=== PATIENT | female | born 1930 | race Caucasian/White ===

== ENCOUNTER 2018-11-14 19:05 | Observation (INO) ==
--- NOTE | 2018-11-14 20:05 | ED ---
HPI General Chief Complaint: Fall Stated Complaint: Fall injury Time Seen by Provider: 11/14/18 19:19 Source: patient Mode of arrival: ambulatory Limitations: no limitations History of Present Illness HPI Narrative: 80-year-old female presents to the emergency department for evaluation after a fall that occurred earlier today. Patient states she was getting out of the car when she slipped and fell landing on the left side of her face. She actually does not recall how she fell but believes she may have slipped as it is raining outside. Her states that patient had a pretty intense physical therapy session and believes it may been a result of weakness and fatigue. She denies loss conscious, blurred vision, neck pain, numbness or tingling of the extremities. She is complaining of left facial and left shoulder pain after the incident. She notes that she has a history of a bulge in the clavicle and this is not new for her. She says she takes Coumadin for her heart history and says she checked INR earlier this month which was 2-3. She denies fever, chills, chest pain, shortness of breath she denies dizziness. MD complaint: Reports fall Onset (ago): hour(s) Fall from: chair Fall witnessed: yes, by family Place fall occurred: home Loss of consciousness: none Prolonged down time: no Symptoms prior to fall: Reports none Context: Reports tripped/slipped Location of injury: Reports face Location of injury - extremities: Left: shoulder Severity: mild Quality: Reports aching Associated symptoms (after fall): Reports denies Related Data Home Medications Medication Instructions Recorded Confirmed atorvastatin 40 mg PO DAILY 09/12/18 11/14/18 diltiazem HCl 120 mg PO DAILY 09/12/18 11/14/18 lisinopril 2.5 mg PO DAILY 09/12/18 11/14/18 metformin 500 mg PO DAILY 09/12/18 11/14/18 warfarin 5 mg PO DAILY 09/12/18 11/14/18 calcium carbonate [Calcium 600] 600 mg PO DAILY 09/13/18 11/14/18 lutein 20 mg PO DAILY 09/13/18 11/14/18 memantine 10 mg PO BID 11/14/18 11/14/18 Allergies Allergy/AdvReac Type Severity Reaction Status Date / Time procaine Allergy Severe FAINTED Verified 09/20/18 06:31 oxycodone AdvReac Severe Nausea/Vomi Verified 09/20/18 06:31 ting simvastatin AdvReac Intermediate FLUSHED Verified 09/20/18 06:31 Review of Systems ROS: all other systems reviewed are negative PMFSH Social History Social History Substance History: No History of Abuse Second Hand Smoke Exposure: No Smoking Status: Former smoker Tobacco Type: Cigarettes How Often Do You Have a Drink Containing Alcohol: Monthly or less Recent Travel in [facility] within the Last 8 Weeks: No Recent Out of Country Travel within the Last 8 Weeks: No Immunization History Tetanus Immunization: Unsure Exam Narrative Exam Narrative: GENERAL: WD, WN in NAD SKIN: Focused skin assessment warm/dry. HEAD: Normocephalic. Left lateral orbit and maxilla-ecchymosis with tenderness palpation without crepitus EYES: Pupils equal and round. No scleral icterus. No injection or drainage. ENT: No nasal bleeding or discharge. Mucous membranes pink and moist. No tonsillar hypertrophy or exudate. NECK: Trachea midline. No JVD. No meningismus. No midline tenderness. CARDIOVASCULAR: Regular rate and rhythm. No murmur appreciated. RESPIRATORY: No accessory muscle use. Clear to auscultation. Breath sounds equal bilaterally. GASTROINTESTINAL: Abdomen soft, non-tender, nondistended. No CVAT. MUSCULOSKELETAL: No obvious deformities. No clubbing. No cyanosis. No edema. No tenderness to palpation of the calves. Sensation intact to bilateral lower extremities. Left shoulder-diffusely tender to palpation, focused in the clavicle. There is a bulge in the medial aspect of the clavicle patient states is chronic. No obvious deformities. NEUROLOGICAL: Awake and alert. No obvious cranial nerve deficits. Motor grossly within normal limits. Normal speech. PSYCHIATRIC: Appropriate mood and affect; insight and judgment normal. Course Initial Documented Vital Signs Temperature 97.9 F 11/14/18 19:08 Pulse Rate 84 11/14/18 19:08 Respiratory Rate 18 11/14/18 19:08 Blood Pressure 225/94 H 11/14/18 19:08 Pulse Oximetry 98 11/14/18 19:08 Last Documented Vital Signs Temperature 97.9 F 11/15/18 11:03 Pulse Rate 93 H 11/15/18 12:00 Respiratory Rate 20 11/15/18 11:03 Blood Pressure 170/75 H 11/15/18 13:50 Pulse Oximetry 96 11/15/18 11:03 Medical Decision Making MIGUE Attestation MIGUE supervised visit: Yes Attestation: I, Dr. Carey, have reviewed the advance practice practitioner's documentation and am in agreement, met with the patient face to face, made the diagnosis, and the medical decision making was done by me. *My assessment and Findings: Syncope vs. Head trauma vs. fracture vs. contusion 88yo F with PMH of CAD s/p bypass, HTN, HLd, DM, paroxysmal afib on coumadin, tachybrady syndrome s/p pacemaker here for evaluation of fall after getting out of car today. Pt does not remember what happened and there was question about syncope. Labs reviewed, no leukocytosis. H/H normal. BMP unremarkable. INR therapeutic at 2.1. Xray left shoulder showed mild degenerative changes AC joints. No fracture. CT brain negative. CT facial showed no facial bone fracture. CT cervical spine showed degenerative changes without fracture. Previous fusion at C5-C6. Pt reevaluated at bedside and now said that she does not remember what happened. Said she remembers about to get out of the car and next thing she remembers is waking up on the floor. said she passed out. 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 Will admit for syncope work up. Discussed with Dr. Hyde and accepted to her service. [facility] Narrative Medical decision making narrative: 88-year-old female presents to the emergency department for evaluation of a fall that occurred earlier today. She denies loss conscious, headache, blurred vision. Denies neck or back pain. Denies numbness or tingling of extremities. Her main complaint is the contusion to her face and left shoulder. Patient does have a history of atrial fibrillation is currently on Coumadin. Order labs for evaluation as patient is unsure how she fell but I suspect that she slipped as it is raining quite heavily today. EKG shows sinus rhythm rate [address] elevation or depression. There are occasional PACs. Medical Screen Exam Complete: Yes Emergency Medical Condition: Yes Differential Diagnosis Differential Diagnosis: Facial trauma, orbital fracture, closed head injury, intracranial hemorrhage Lab Data Result diagrams: 11/15/18 06:48 11/15/18 06:48 Lab Results 11/14/18 11/14/18 11/14/18 Range/Units 19:42 19:42 19:42 WBC 7.3 (4.0-11.0) th/mm3 RBC 4.11 (4.00-5.30) mil/mm3 Hgb 12.4 (11.6-15.3) gm/dL Hct 36.0 (35.0-46.0) % MCV 87.5 (80.0-100.0) fL MCH 30.1 (27.0-34.0) pg MCHC 34.3 (32.0-36.0) % RDW 14.0 (11.6-17.2) % Plt Count 149 L (150-450) th/mm3 MPV 6.6 L (7.0-11.0) fL Neut % (Auto) 73.7 H (16.0-70.0) % Lymph % (Auto) 14.8 (9.0-44.0) % [place] % (Auto) 10.0 H (0.0-8.0) % Eos % (Auto) 1.1 (0.0-4.0) % Baso % (Auto) 0.4 (0.0-2.0) % Neut # (Auto) 5.4 (1.8-7.7) th/mm3 Lymph # (Auto) 1.1 (1.0-4.8) th/mm3 [place] # (Auto) 0.7 (0.0-0.9) th/mm3 Eos # (Auto) 0.1 (0.0-0.4) th/mm3 Baso # (Auto) 0.0 (0.0-0.2) th/mm3 WBC Differential . Differential Comment Auto diff final PT 21.2 H (9.8-11.6) sec INR 2.1 Ratio Sodium 138 (136-145) meq/L Potassium 3.9 (3.5-5.1) meq/L Chloride 104 (98-107) meq/L Carbon Dioxide 27.8 (21.0-32.0) meq/L Anion Gap 6 (5-15) meq/L BUN 12 (7-18) mg/dL Creatinine 0.87 (0.50-1.00) mg/dL Estimated GFR 61 L (>89) mL/min Random Glucose 117 H (74-106) mg/dL Calcium 9.4 (8.5-10.1) mg/dL Total Bilirubin (0.2-1.0) mg/dL AST (15-37) U/L ALT (10-53) U/L Alkaline Phosphatase (45-117) U/L Troponin I (0.02-0.05) ng/mL Total Protein (6.4-8.2) g/dL Albumin (3.4-5.0) g/dL Urine Color (Yellw/Straw) Urine Clarity (Clear) Urine pH (5.0-8.5) Ur Specific [place] (1.002-1.035) Urine Protein (Neg-Trace) mg/dL Urine Glucose (UA) (Negative) mg/dL Urine Ketones (Negative) mg/dL Urine Occult Blood (Negative) Urine Nitrate (Negative) Urine Bilirubin (Negative) Urine Urobilinogen (Less than 2) mg/dL Ur Leukocyte Esterase (Negative) Urine RBC (0-3) /hpf Urine WBC (0-5) /hpf Micro UA Comment Ur Microscopic Review Urine Culture Comments 11/14/18 11/15/18 11/15/18 Range/Units 22:05 00:17 06:48 WBC 6.7 (4.0-11.0) th/mm3 RBC 3.58 L (4.00-5.30) mil/mm3 Hgb 11.2 L (11.6-15.3) gm/dL Hct 32.0 L (35.0-46.0) % MCV 89.4 (80.0-100.0) fL MCH 31.2 (27.0-34.0) pg MCHC 34.9 (32.0-36.0) % RDW 14.3 (11.6-17.2) % Plt Count 124 L (150-450) th/mm3 MPV 6.4 L (7.0-11.0) fL Neut % (Auto) 72.1 H (16.0-70.0) % Lymph % (Auto) 14.4 (9.0-44.0) % [place] % (Auto) 12.3 H (0.0-8.0) % Eos % (Auto) 0.7 (0.0-4.0) % Baso % (Auto) 0.5 (0.0-2.0) % Neut # (Auto) 4.9 (1.8-7.7) th/mm3 Lymph # (Auto) 1.0 (1.0-4.8) th/mm3 [place] # (Auto) 0.8 (0.0-0.9) th/mm3 Eos # (Auto) 0.0 (0.0-0.4) th/mm3 Baso # (Auto) 0.0 (0.0-0.2) th/mm3 WBC Differential . Differential Comment Auto diff final PT (9.8-11.6) sec INR Ratio Sodium (136-145) meq/L Potassium (3.5-5.1) meq/L Chloride (98-107) meq/L Carbon Dioxide (21.0-32.0) meq/L Anion Gap (5-15) meq/L BUN (7-18) mg/dL Creatinine (0.50-1.00) mg/dL Estimated GFR (>89) mL/min Random Glucose (74-106) mg/dL Calcium (8.5-10.1) mg/dL Total Bilirubin (0.2-1.0) mg/dL AST (15-37) U/L ALT (10-53) U/L Alkaline Phosphatase (45-117) U/L Troponin I Less than 0.02 L (0.02-0.05) ng/mL Total Protein (6.4-8.2) g/dL Albumin (3.4-5.0) g/dL Urine Color Colorless (Yellw/Straw) Urine Clarity Clear (Clear) Urine pH 7.0 (5.0-8.5) Ur Specific [place] 1.004 (1.002-1.035) Urine Protein Negative (Neg-Trace) mg/dL Urine Glucose (UA) Negative (Negative) mg/dL Urine Ketones Negative (Negative) mg/dL Urine Occult Blood Negative (Negative) Urine Nitrate Negative (Negative) Urine Bilirubin Negative (Negative) Urine Urobilinogen Less than 2 (Less than 2) mg/dL Ur Leukocyte Esterase Negative (Negative) Urine RBC Less than 1 (0-3) /hpf Urine WBC Less than 1 (0-5) /hpf Micro UA Comment Culture not ind Ur Microscopic Review Not Reportable Urine Culture Comments Culture not ind 11/15/18 Range/Units 06:48 WBC (4.0-11.0) th/mm3 RBC (4.00-5.30) mil/mm3 Hgb (11.6-15.3) gm/dL Hct (35.0-46.0) % MCV (80.0-100.0) fL MCH (27.0-34.0) pg MCHC (32.0-36.0) % RDW (11.6-17.2) % Plt Count (150-450) th/mm3 MPV (7.0-11.0) fL Neut % (Auto) (16.0-70.0) % Lymph % (Auto) (9.0-44.0) % [place] % (Auto) (0.0-8.0) % Eos % (Auto) (0.0-4.0) % Baso % (Auto) (0.0-2.0) % Neut # (Auto) (1.8-7.7) th/mm3 Lymph # (Auto) (1.0-4.8) th/mm3 [place] # (Auto) (0.0-0.9) th/mm3 Eos # (Auto) (0.0-0.4) th/mm3 Baso # (Auto) (0.0-0.2) th/mm3 WBC Differential Differential Comment PT (9.8-11.6) sec INR Ratio Sodium 141 (136-145) meq/L Potassium 3.8 (3.5-5.1) meq/L Chloride 109 H (98-107) meq/L Carbon Dioxide 24.4 (21.0-32.0) meq/L Anion Gap 8 (5-15) meq/L BUN 9 (7-18) mg/dL Creatinine 0.68 (0.50-1.00) mg/dL Estimated GFR 82 L (>89) mL/min Random Glucose 103 (74-106) mg/dL Calcium 8.6 D (8.5-10.1) mg/dL Total Bilirubin 0.6 (0.2-1.0) mg/dL AST 20 (15-37) U/L ALT 21 (10-53) U/L Alkaline Phosphatase 86 (45-117) U/L Troponin I Less than 0.02 L (0.02-0.05) ng/mL Total Protein 6.2 L (6.4-8.2) g/dL Albumin 3.2 L (3.4-5.0) g/dL Urine Color (Yellw/Straw) Urine Clarity (Clear) Urine pH (5.0-8.5) Ur Specific [place] (1.002-1.035) Urine Protein (Neg-Trace) mg/dL Urine Glucose (UA) (Negative) mg/dL Urine Ketones (Negative) mg/dL Urine Occult Blood (Negative) Urine Nitrate (Negative) Urine Bilirubin (Negative) Urine Urobilinogen (Less than 2) mg/dL Ur Leukocyte Esterase (Negative) Urine RBC (0-3) /hpf Urine WBC (0-5) /hpf Micro UA Comment Ur Microscopic Review Urine Culture Comments Imaging Data Radiologist's impression: Cervical Spine CT 11/14/18 19:29 CONCLUSION: 1. Extensive degenerative changes without fracture. 2. Previous fusion at C5-C6 Face CT 11/14/18 19:29 CONCLUSION: 1. Negative for facial bone fracture. Complete opacification of the left maxillary sinus with chronic periosteal reaction suggesting long-term obstruction. Head CT 11/14/18 19:29 CONCLUSION: 1. Negative for acute process . Shoulder X-Ray 11/14/18 19:29 CONCLUSION: Mild degenerative changes AC joints no fracture Carotid Doppler Study 11/15/18 00:00 CONCLUSION: Negative examination for a hemodynamically significant carotid stenosis. Adam Garibay MD FACR ECG Data EKG Prior to Arrival: No Attestation: I personally reviewed and interpreted this ECG as follows: Interpretation: NSR 76bpm. LAD. TWI aVL. QTc 424ms. No significant ST elevation or depression. Discharge Plan Discharge Disposition Patient Disposition: ED Admit(ED Internal Use Only) Discharge Order Discharge Orders: ED Use Only Admit Order (Routine); Ordered 11/14/18 Ordered By: Jaimie Carey Discharge Details Diagnosis: Syncope Physicians Team ED Provider: Jaimie Carey ED Midlevel Provider: Courtney Guillen Primary Care Provider: Bobbi Mayo Attending Provider: Arleen Hurst Other Providers: Anthony Mendenhall Status ED Status: Left Department Discharge Information Discharge Date/Time: 11/15/18 00:54
--- NOTE | 2018-11-14 20:07 | XR ---
EXAM DATE: 11/14/2018 8:02 PM EST AGE/SEX: 88 years / Female INDICATIONS: Left shoulder pain after fall. CLINICAL DATA: This is the patient's initial encounter. Patient reports that signs and symptoms have been present for 1 day and indicates a pain score of 2/10. MEDICAL/SURGICAL HISTORY: None. None. COMPARISON: . FINDINGS: Bony structures are intact and in normal alignment. Joints are intact without dislocation or signifi cant arthropathy. Mild AC joint degenerative changes evident Osseous density is normal. Soft tissue s are unremarkable. No radiopaque foreign bodies seen. Pacemaker on the left, CONCLUSION: Mild degenerative changes AC joints no fracture Electronically signed by: Adam Garibay MD Board Certified Radiologist 11/14/2018 8:05 PM EST
[2018-11-14 20:13] LABS: Baso % (Auto) 0.4 % (0.0-2.0); Eos # (Auto) 0.1 th/mm3 (0.0-0.4); Eos % (Auto) 1.1 % (0.0-4.0); Hemoglobin 12.4 gm/dL (11.6-15.3); Lymph # (Auto) 1.1 th/mm3 (1.0-4.8); Lymph % (Auto) 14.8 % (9.0-44.0); Mean Corpuscular HGB Conc 34.3 % (32.0-36.0); Mean Corpuscular Hemoglobin 30.1 pg (27.0-34.0); Mean Corpuscular Volume 87.5 fL (80.0-100.0); Mean Platelet Volume 6.6 fL (7.0-11.0); Mono # (Auto) 0.7 th/mm3 (0.0-0.9); Neut # (Auto) 5.4 th/mm3 (1.8-7.7); Neut % (Auto) 73.7 % (16.0-70.0); Platelet Count 149 th/mm3 (150-450); Red Blood Count 4.11 mil/mm3 (4.00-5.30); White Blood Count 7.3 th/mm3 (4.0-11.0)
[2018-11-14] MEDS ORDERED: Tetanus/Diphtheria Toxoid Adult Vaccine Inj 0.5 ML Vial IM ONE (20:16)
--- NOTE | 2018-11-14 20:18 | CT ---
EXAM DATE: 11/14/2018 8:13 PM EST AGE/SEX: 88 years / Female INDICATIONS: Trauma, fall. Hematoma to left eyebrow. CLINICAL DATA: This is the patient's initial encounter. Patient reports that signs and symptoms have been present for 1 day and indicates a pain score of 6/10. MEDICAL/SURGICAL HISTORY: Dementia. Diabetes. Hypertension. CABG. RADIATION DOSE: 31.84 CTDI (mGy) COMPARISON: [facility], CT BRAIN W/O CONTRAST, 09/05/2018. . TECHNIQUE: CT of the head without contrast. Using automated exposure control and adjustment of the mA and/or kV according to patient size, radiation dose was kept as low as reasonably achievable to ob tain optimal diagnostic quality images. DICOM format image data is available electronically for revi ew and comparison. FINDINGS: Cerebrum: The ventricles are normal for age. No evidence of midline shift, mass lesion, hemorrhage or acute infarction. No extraaxial fluid collections are seen. Posterior Fossa: The cerebellum and brainstem are intact. The 4th ventricle is midline. The cerebe llopontine angle is unremarkable. Extracranial: The visualized portion of the orbits is intact. Skull: The calvaria is intact. No evidence of skull fracture. CONCLUSION: 1. Negative for acute process . Electronically signed by: Adam Garibay MD Board Certified Radiologist 11/14/2018 8:17 PM EST
--- NOTE | 2018-11-14 20:22 | CT ---
EXAM DATE: 11/14/2018 8:15 PM EST AGE/SEX: 88 years / Female INDICATIONS: Trauma, fall. CLINICAL DATA: This is the patient's initial encounter. Patient reports that signs and symptoms have been present for 1 day and indicates a pain score of 6/10. MEDICAL/SURGICAL HISTORY: Dementia. Diabetes. Hypertension. CABG. Fusion, cervical. RADIATION DOSE: 21.06 CTDI (mGy) COMPARISON: No prior exams available for comparison. TECHNIQUE: Contiguous axial images were obtained using helical multirow detector technique. The vol umetric data was post-processed with multiplanar reconstruction in oblique axial, sagittal, and coron al planes. Using automated exposure control and adjustment of the mA and/or kV according to patient s ize, radiation dose was kept as low as reasonably achievable to obtain optimal diagnostic quality ricky ges. DICOM format image data is available electronically for review and comparison. FINDINGS: Vertebrae: There are degenerative changes in the cervical spine with previous fusion at C5-C6. Align ment anatomic. C1-C2: Mild degenerative changes are present at C1-C2 without fracture. C2-3: Mild degenerative changes without spinal stenosis or fracture C3-4: Moderate facet changes on the right with right-sided neural foraminal encroachment. Minimal un cinate ridging without spinal stenosis. C4-5: With moderate neural foraminal encroachment. Uncinate ridging with moderate spinal stenosis C5-6: Level is fused. C6-7: Mild uncinate ridging present with minimal bilateral neural foraminal encroachment. C7-T1: Mild degenerative changes. Lung apex is clear CONCLUSION: 1. Extensive degenerative changes without fracture. 2. Previous fusion at C5-C6 Electronically signed by: Adam Garibay MD Board Certified Radiologist 11/14/2018 8:21 PM EST
--- NOTE | 2018-11-14 20:24 | CT ---
EXAM DATE: 11/14/2018 8:15 PM EST AGE/SEX: 88 years / Female INDICATIONS: Trauma, fall. Hematoma to left eyebrow. CLINICAL DATA: This is the patient's initial encounter. Patient reports that signs and symptoms have been present for 1 day and indicates a pain score of 6/10. MEDICAL/SURGICAL HISTORY: Dementia. Diabetes. Hypertension. CABG. RADIATION DOSE: 60.46 CTDI (mGy) COMPARISON: No prior exams available for comparison. TECHNIQUE: Contiguous images in the axial and coronal planes were obtained using helical multirow de tector technique. Using automated exposure control and adjustment of the mA and/or kV according to p atient size, radiation dose was kept as low as reasonably achievable to obtain optimal diagnostic luis armando lity images. DICOM format image data is available electronically for review and comparison. FINDINGS: There is no evidence for facial bone fracture. There is complete opacification of the left maxillary sinus. There right maxillary sinus, ethmoids and frontal sinuses are clear. CONCLUSION: 1. Negative for facial bone fracture. 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 Electronically signed by: Adam Garibay MD Board Certified Radiologist 11/14/2018 8:22 PM EST
[2018-11-14 20:25] LABS: INR 2.1 Ratio; Prothrombin Time 21.2 sec (9.8-11.6)
[2018-11-14 20:27] LABS: Calcium 9.4 mg/dL (8.5-10.1); Carbon Dioxide 27.8 meq/L (21.0-32.0); Potassium 3.9 meq/L (3.5-5.1)
[2018-11-14] MEDS ORDERED: hydrALAZINE HCl Inj 20 MG/ML Vial IV.PUSH ONE (20:55)
[2018-11-14 22:43] LABS: Bilirubin,Urine Negative (Negative); Clarity,Urine Clear (Clear); Color,Urine Colorless (Yellw/Straw); Glucose,Urine (UA) Negative (Negative); Leukocyte Esterase,Urine Negative (Negative); Nitrite,Urine Negative (Negative); Specific Gravity,Urine 1.004 (1.002-1.035)
[2018-11-14] MEDS ORDERED: Acetaminophen 325 MG Tablet PO PRN (23:13)
[2018-11-14] MEDS ORDERED: Bisacodyl 10 MG Supp RECTAL PRN (23:13)
[2018-11-14] MEDS: Sod Chloride 0.9% Inj 1,000 ML IV.CONT SCH (23:28)
--- NOTE | 2018-11-15 03:42 | P.HPIM ---
History of Present Illness Primary Care Physician: Bobbi Mayo DO History of Present Illness: This is a 88-year-old female with a PMH of HTN, Dementia, DM and A-fib on Coumadin who was brought to the ER by EMS after syncopal event. Pt states she has no recollection of syncope. Was stepping out of the car when heard a thud on the ground, states she " fell over like a tree". Pt denies any dizziness, lightheadedness or chest pain. Does complain of shoulder pain, constant, worse w/ movement. No h/o similar symptoms. On arrival, BP 225/94, HR 84, O2 sat 98% on RA, Afebrile. CBC unremarkable except for platelets 149. INR 2.1. Chemistry unremarkable except for GFR 61. Troponin negative. UA negative. Shoulder X-ray negative for fracture. CT Head negative. CT Face negative for facial bone fracture. CT C-spine previous fusion at C5-C6, no fracture. Diagnosis (1) Syncope: (2) Fall: (3) A-fib: (4) DM (diabetes mellitus): Review of Systems PAST FAMILY HISTORY: Reviewed. No h/o DM or CAD Review of Systems: all other systems reviewed are negative [facility] Medical History Medical History Atrial fibrillation (Acute) Dementia (Acute) Diabetes (Acute) Hard of hearing (Acute) History of hysterectomy (Acute) Hx-TIA (transient ischemic attack) (Acute) Hypertension (Acute) Metal bone fixation hardware in place (Acute) Pacemaker (Acute) Presence of orthopedic joint implant (Acute) Skin cancer (melanoma) (Acute) Wears partial dentures (Acute) Surgical History Surgical History H/O heart bypass surgery (Acute) History of total right knee replacement (TKR) (Acute) Hx of CABG (Acute) Hx of cervical spine surgery (Acute) Hx of eye surgery (Acute) S/P triple vessel bypass (Acute) Social History Social History Substance History: No History of Abuse Second Hand Smoke Exposure: No Smoking Status: Former smoker Tobacco Type: Cigarettes How Often Do You Have a Drink Containing Alcohol: Monthly or less Recent Travel in [facility] within the Last 8 Weeks: No Recent Out of Country Travel within the Last 8 Weeks: No Immunization History Tetanus Immunization: Unsure Medications and Allergies Allergies Allergy/AdvReac Type Severity Reaction Status Date / Time procaine Allergy Severe FAINTED Verified 09/20/18 06:31 oxycodone AdvReac Severe Nausea/Vomi Verified 09/20/18 06:31 ting simvastatin AdvReac Intermediate FLUSHED Verified 09/20/18 06:31 Home Medications Medication Instructions Recorded Confirmed Type atorvastatin 40 mg PO DAILY 09/12/18 11/14/18 History diltiazem HCl 120 mg PO DAILY 09/12/18 11/14/18 History lisinopril 2.5 mg PO DAILY 09/12/18 11/14/18 History metformin 500 mg PO DAILY 09/12/18 11/14/18 History warfarin 5 mg PO DAILY 09/12/18 11/14/18 History calcium carbonate [Calcium 600] 600 mg PO DAILY 09/13/18 11/14/18 History lutein 20 mg PO DAILY 09/13/18 11/14/18 History memantine 10 mg PO BID 11/14/18 11/14/18 History Active Medications: Active Medications Acetaminophen (Tylenol) 650 mg PO Q4H PRN PRN Reason: Temp > 100.4 Al Hydroxide/Mg Hydroxide (Milk Of Magnesia Liq) 30 ml PO Q12H PRN PRN Reason: Mild Constipation Atorvastatin Calcium (Lipitor) 40 mg PO DAILY [facility] Bisacodyl (Dulcolax Supp) 10 mg RECTAL DAILY PRN PRN Reason: SEVERE CONSITIPATION Sodium Chloride (Ns Inj) 1,000 mls @ 100 mls/hr IV.CONT .Q10H [facility] Last Admin: 11/14/18 23:28 Dose: 100 mls/hr Lactulose (Lactulose Liq) 30 ml PO DAILY PRN PRN Reason: SEVERE CONSITIPATION Memantine (Namenda) 10 mg PO BID [facility] Last Admin: 11/15/18 00:50 Dose: 10 mg Non-Formulary Medication (Calcium Carbonate [Calcium 600]) 600 mg PO DAILY [facility] Non-Formulary Medication (Diltiazem Hcl [Diltiazem Hcl]) 120 mg PO DAILY [facility] Non-Formulary Medication (Lisinopril [Lisinopril]) 2.5 mg PO DAILY [facility] Ondansetron HCl (Zofran Inj) 4 mg IV.PUSH Q6H PRN PRN Reason: NAUSEA OR VOMITING Senna/Docusate Sodium (Kati-Colace) 1 tab PO BID [place] Sennosides (Senokot) 17.2 mg PO Q12H PRN PRN Reason: Moderate Constipation Sodium Chloride (Ns Flush) 2 ml IV.FLUSH PRN PRN PRN Reason: FLUSH AFTER USING IV ACCESS Sodium Chloride (Ns Flush) 2 ml IV.FLUSH BID [place] Sodium Chloride (Ns Flush) 2 ml IV.FLUSH PRN PRN PRN Reason: FLUSH AFTER USING IV ACCESS Physical Exam Vital signs: Last Vital Signs Temp 97.6 F 11/15/18 00:56 Pulse 88 11/15/18 00:56 Resp 16 11/15/18 00:56 BP 137/87 11/15/18 00:56 Pulse Ox 98 11/15/18 00:56 Intake & Output 11/12/18 11/13/18 11/14/18 11/15/18 06:59 06:59 06:59 06:59 Weight 60.8 kg Narrative: PE: GENERAL: Very pleasant elderly white female in no acute distress. at bedside. SKIN: Focused skin assessment warm and dry. HEENT: PERRLA, EOMI. No scleral icterus or conjunctival pallor. No lid lag or facial droop. Left periorbital ecchymosis, superficial facial abrasions. CARDIOVASCULAR: Regular rate and rhythm. No obvious murmurs to auscultation. No chest tenderness to palpation. RESPIRATORY: No obvious rhonchi or wheezing. Clear to auscultation. Breath sounds equal bilaterally. GASTROINTESTINAL: Abdomen soft, non-tender, nondistended. BS normal. MUSCULOSKELETAL: Extremities without clubbing, cyanosis, or edema. No obvious deformities. NEUROLOGICAL: Awake, alert and oriented x4. No focal neurologic deficits. Moving both upper and lower extremities spontaneously. PSYCHIATRIC: Appropriate mood and affect. Insight and judgment normal. Results Labs CBC & Chem 7: 11/14/18 19:42 11/14/18 19:42 Imaging Impressions Cervical Spine CT 11/14/18 19:29 CONCLUSION: 1. Extensive degenerative changes without fracture. 2. Previous fusion at C5-C6 Face CT 11/14/18 19:29 CONCLUSION: 1. Negative for facial bone fracture. Complete opacification of the left maxillary sinus with chronic periosteal reaction suggesting long-term obstruction. Head CT 11/14/18 19:29 CONCLUSION: 1. Negative for acute process . Shoulder X-Ray 11/14/18 19:29 CONCLUSION: Mild degenerative changes AC joints no fracture Caprini VTE Risk Assessment Caprini VTE Risk Assessment: Moderate/High Risk (score >= 2) Caprini Risk Assessment Model: Point Value = 1 Point Value = 2 Point Value = 3 Point Value = 5 Age 41-60 Minor surgery BMI > 25 kg/m2 Swollen legs Varicose veins or History of unexplained or recurrent spontaneous Oral contraceptives or hormone replacement Sepsis (< 1 month) Serious lung disease, including pneumonia (< 1 month) Abnormal pulmonary function Acute myocardial infarction Congestive heart failure (< 1 month) History of inflammatory bowel disease Medical patient at bed rest Age 61-74 Arthroscopic surgery Major open surgery (> 45 min) Laparoscopic surgery (> 45 min) Malignancy Confined to bed (> 72 hours) Immobilizing plaster cast Central venous access Age >= 75 History of VTE Family history of VTE Factor V Leiden Prothrombin [id number] Lupus anticoagulant Anticardiolipin antibodies Elevated serum homocysteine Heparin-induced thrombocytopenia Other congenital or acquired thrombophilia Stroke (< 1 month) Elective arthroplasty Hip, pelvis, or leg fracture Acute spinal cord injury (< 1 month) Prophylaxis Regimen: Total Risk Factor Score Risk Level Prophylaxis Regimen 0-1 Low Early ambulation 2 Moderate Order ONE of the following: *Sequential Compression Device (SCD) *Heparin 5000 units SQ BID 3-4 Higher Order ONE of the following medications: *Heparin 5000 units SQ TID *Enoxaparin/Lovenox 40 mg SQ daily (WT < 150 kg, CrCl > 30 mL/min) *Enoxaparin/Lovenox 30 mg SQ daily (WT < 150 kg, CrCl > 10-29 mL/min) *Enoxaparin/Lovenox 30 mg SQ BID (WT < 150 kg, CrCl > 30 mL/min) AND/OR *Sequential Compression Device (SCD) 5 or more Highest Order ONE of the following medications: *Heparin 5000 units SQ TID (Preferred with Epidurals) *Enoxaparin/Lovenox 40 mg SQ daily (WT < 150 kg, CrCl > 30 mL/min) *Enoxaparin/Lovenox 30 mg SQ daily (WT < 150 kg, CrCl > 10-29 mL/min) *Enoxaparin/Lovenox 30 mg SQ BID (WT < 150 kg, CrCl > 30 mL/min) AND *Sequential Compression Device (SCD) Assessment and Plan (1) Syncope: Code(s): R55 - Syncope and collapse Status: Acute (2) Fall: Code(s): W19.XXXA - Unspecified fall, initial encounter Status: Acute (3) A-fib: Code(s): I48.91 - Unspecified atrial fibrillation Status: Acute (4) DM (diabetes mellitus): Code(s): E11.9 - Type 2 diabetes mellitus without complications Status: Acute Plan A/P: 1. Syncope: acute syncopal event, denies prodromal symptoms, CT Head w/ no acute findings, initial trop negative. Admit for observation, telemetry, check serial cardiac enzymes to eval for underlying ischemia. Check Echo to eval for valvular abnormality/cardiomyopathy. PT for eval/tx. 2. Fall: secondary to above, +right shoulder pain, Shoulder X-ray w/ no acute fracture, CT C-Spine w/ previous fusion, no fracture. Analgesics/antiemetics as needed. 3. A-fib: Chronic. Resume home medications. INR therpeutic at 2.1, repeat INR in am. 4. DM: Sliding scale w/ Accu-Cheks. Hold Metformin for now. 5. DVT Prophylaxis: On Coumadin, check INR in am. 6. Social work for d/c planning as needed. 7. Case discussed w/ ER physician at length, labs/records/imaging reviewed by me. H&P: Quality VTE Deep Vein Thrombosis/Pulmonary Embolism Present on Admission: No
[2018-11-15 07:48] LABS: Baso % (Auto) 0.5 % (0.0-2.0); Eos % (Auto) 0.7 % (0.0-4.0); Hemoglobin 11.2 gm/dL (11.6-15.3); Lymph % (Auto) 14.4 % (9.0-44.0); Mean Corpuscular HGB Conc 34.9 % (32.0-36.0); Mean Corpuscular Hemoglobin 31.2 pg (27.0-34.0); Mean Corpuscular Volume 89.4 fL (80.0-100.0); Mean Platelet Volume 6.4 fL (7.0-11.0); Mono # (Auto) 0.8 th/mm3 (0.0-0.9); Mono % (Auto) 12.3 % (0.0-8.0); Neut # (Auto) 4.9 th/mm3 (1.8-7.7); Neut % (Auto) 72.1 % (16.0-70.0); Platelet Count 124 th/mm3 (150-450); Red Blood Count 3.58 mil/mm3 (4.00-5.30); Red Cell Distribution Width 14.3 % (11.6-17.2); White Blood Count 6.7 th/mm3 (4.0-11.0)
[2018-11-15 07:51] LABS: Albumin 3.2 g/dL (3.4-5.0); Anion Gap 8 meq/L (5-15); Aspartate Aminotransferase 20 U/L (15-37); Blood Urea Nitrogen 9 mg/dL (7-18); Calcium 8.6 mg/dL (8.5-10.1); Carbon Dioxide 24.4 meq/L (21.0-32.0); Chloride 109 meq/L (98-107); Glomerular Filtration Rate 82 mL/min (>89); Glucose,Random 103 mg/dL (74-106); Potassium 3.8 meq/L (3.5-5.1); Sodium 141 meq/L (136-145)
[2018-11-15 07:54] LABS: Alanine Aminotransferase 21 U/L (10-53); Alkaline Phosphatase 86 U/L (45-117); Total Protein 6.2 g/dL (6.4-8.2)
--- NOTE | 2018-11-15 08:37 | ECG ---
Date Performed: 11/14/2018 Time Performed: 19:27:11 PTAGE: 88 years EKG: Sinus rhythm WITH OCCASIONAL SUPRAVENTRICULAR PREMATURE COMPLEXES INCOMPLETE RIGHT BUNDLE BRANCH BLOCK LEFT ANTER IOR FASCICULAR BLOCK NONSPECIFIC T-WAVE ABNORMALITY ABNORMAL ECG NO PREVIOUS TRACING DOCTOR: Adeel Chapman Interpretating Date/Time 11/15/2018 08:36:29
[2018-11-15] MEDS: Senna/Docusate Sodium 8.6/50 MG Tablet PO SCH ×2 (08:57→20:28)
[2018-11-15] MEDS ORDERED: Non-Formulary Drug (Lisinopril [Lisinopril] 2.5 MG) PO SCH (09:00)
[2018-11-15] MEDS ORDERED: CALCIUM CARBONATE 600 MG PO SCH (09:00)
[2018-11-15] MEDS ORDERED: Lisinopril 5 MG Tablet PO SCH (09:30)
[2018-11-15] MEDS: dilTIAZem CD 120 MG Capsule PO SCH (10:53)
[2018-11-15] MEDS: Calcium Carbonate 500 MG Tablet PO SCH (10:56)
--- NOTE | 2018-11-15 12:21 | US ---
EXAM DATE: 11/15/2018 12:18 PM EST AGE/SEX: 88 years / Female INDICATIONS: Syncope. CLINICAL DATA: This is the patient's initial encounter. Patient reports that signs and symptoms have been present for 1 day and indicates a pain score of 4/10. MEDICAL/SURGICAL HISTORY: Dementia. Diabetes. Carcinoma, skin cancer. AFib. Hard of hearing. TIA. HTN. Hysterectomy. Pacemaker. CABG. Metal bone fixation hardware placed in cervical spine. Right eye cataract removal and vitrectomy. Right knee orthopedic joint implant. Right TKR. COMPARISON: No prior exams available for comparison. VELOCITY PARAMETERS: ICA/CCA Ratio: Right 1.4 , Left 1.3 ICA: Right 147 cm/sec, Left 114 cm/sec CCA: Right 107 cm/sec, Left 87 cm/sec ECA: Right 160 cm/sec, Left 180 cm/sec Vertebral: Right 57 cm/sec antegrade, Left 45 cm/sec antegrade FINDINGS: RIGHT CAROTID: There is no evidence for a hemodynamically significant carotid stenosis. Minimal int imal hyperplasia is present with scattered calcific plaque. LEFT CAROTID: There is no evidence for a hemodynamically significant carotid stenosis. Minimal inti mal hyperplasia is present with scattered calcific plaque. Flow is antegrade in both vertebral arteries. There are no ancillary masses or adenopathy. CONCLUSION: Negative examination for a hemodynamically significant carotid stenosis. Adam Garibay MD FACR Electronically signed by: Adam Garibay MD Board Certified Radiologist 11/15/2018 12:19 PM EST
[2018-11-15] MEDS: Sod Chloride 0.9% Inj 1,000 ML IV.CONT SCH ×2 (12:52→20:30)
--- NOTE | 2018-11-15 13:36 | P.PNIM ---
Subjective Interval history: 88-year-old female status post syncopal episode, without prodromal symptoms. Patient seen and examined, at bedside case discussed, patient denies any lightheadedness dizziness any recent chest pains, this appears to be sudden syncopal episode, she had just finished physical therapy as an outpatient, and was feeling tired but fine. Blood pressures have been quite elevated, she is otherwise asymptomatic Physical Exam Vital signs: Last Vital Signs Temp 97.9 F 11/15/18 11:03 Pulse 78 11/15/18 11:03 Resp 20 11/15/18 11:03 BP 187/76 H 11/15/18 11:03 Pulse Ox 96 11/15/18 11:03 Intake & Output 11/13/18 11/14/18 11/15/18 11/16/18 06:59 06:59 06:59 06:59 Intake Total 900 / 900 Balance 900 / 900 Weight 60.8 kg Pleasant 88-year-old female, bruising right lateral orbit Awake alert oriented to person and place, forgetful Heart S1-S2 regular without ectopy Lungs clear bilateral no wheezes no rhonchi Abdomen soft nondistended positive bowel sounds Extremities no clubbing cyanosis no edema Results Labs CBC & Chem 7: 11/15/18 06:48 11/15/18 06:48 Imaging Imaging: Impressions Cervical Spine CT 11/14/18 19:29 CONCLUSION: 1. Extensive degenerative changes without fracture. 2. Previous fusion at C5-C6 Face CT 11/14/18 19:29 CONCLUSION: 1. Negative for facial bone fracture. Complete opacification of the left maxillary sinus with chronic periosteal reaction suggesting long-term obstruction. Head CT 11/14/18 19:29 CONCLUSION: 1. Negative for acute process . Shoulder X-Ray 11/14/18 19:29 CONCLUSION: Mild degenerative changes AC joints no fracture Carotid Doppler Study 11/15/18 00:00 CONCLUSION: Negative examination for a hemodynamically significant carotid stenosis. Adam Garibay MD FACR EKGEKG: Sinus rhythm WITH OCCASIONAL SUPRAVENTRICULAR PREMATURE COMPLEXES INCOMPLETE RIGHT BUNDLE BRANCH BLOCK LEFT ANTERIOR FASCICULAR BLOCK NONSPECIFIC T-WAVE ABNORMALITY ABNORMAL ECG NO PREVIOUS TRACING DOCTOR: Adeel Chapman Interpretating Date/Time 11/15/2018 08:36:29 Assessment and Plan (1) Syncope: Code(s): R55 - Syncope and collapse Status: Acute (2) Fall: Code(s): W19.XXXA - Unspecified fall, initial encounter Status: Acute (3) A-fib: Code(s): I48.91 - Unspecified atrial fibrillation Status: Acute (4) DM (diabetes mellitus): Code(s): E11.9 - Type 2 diabetes mellitus without complications Status: Acute Plan SYNCOPEuncertain etiologypatient has been admitted for observation, rule out arrhythmia, patient has cardiac history, and abnormal EKG, continue telemetry, consult cardiology, fu echo and carotids. HYPERTENSIVE EMERGENCY/URGENCY- cont titrate bp control as tolerated ATRIAL FIBRILLATION PAROXYSMAL - rate control nsr, coumadin theraputic DIABETES [id number] - cont iss, diet DYSLIPIDEMIA - resume statin, DEMENTIA - cont home meds CONTUSION R HEAD/FACE s/p fall - imaging in ED no fx, monitor for change in mental status like SDH s/p closed head injury while on coumadin, dvt prophylaxis - coumadin dispo - home w outpt pt resumption pending cardio eval, carotid, echo result, prob tomorrow. Progress Note: Quality VTE Deep Vein Thrombosis/Pulmonary Embolism Present on Admission: No
[2018-11-15] MEDS ORDERED: hydrALAZINE 25 MG Tablet PO PRN (13:46)
--- NOTE | 2018-11-15 19:01 | ECHRPT ---
Indication: SYNCOPE CONCLUSIONS Normal left ventricular size. Wall thickness is normal. The left ventricular systolic function is low normal with an estimated ejection fraction in the rang e of 50- 55%. Trace mitral valve regurgitation. Mild aortic valve regurgitation. Diffuse calcification of the aortic valve. The estimated pulmonary arterial pressure is 45 mmHg. BP: / HR: Rhythm: MEASUREMENTS (Male / Female) Normal Values Technical Quality: 2D ECHO LV Diastolic Diameter PLAX 4.0 cm 4.2 - 5.9 / 3.9 - 5.3 cm LV Systolic Diameter PLAX 3.1 cm IVS Diastolic Thickness 1.2 cm 0.6 - 1.0 / 0.6 - 0.9 cm LVPW Diastolic Thickness 1.1 cm 0.6 - 1.0 / 0.6 - 0.9 cm LV Relative Wall Thickness 0.6 RV Internal Dim ED PLAX 2.6 cm LVOT Diameter 1.6 cm Aortic Root Diameter 3.0 cm LA Systolic Diameter LX 2.9 cm 3.0 - 4.0 / 2.7 - 3.8 cm M-MODE Aortic Root Diameter MM 3.4 cm LA Systolic Diameter MM 3.9 cm LA Ao Ratio MM 1.1 AV Cusp Separation MM 1.9 cm DOPPLER AV Peak Velocity 170.0 cm/s AV Peak Gradient 11.6 mmHg AI Peak Velocity 204.0 cm/s AI Peak Gradient 16.6 mmHg AI Pressure Half Time 455.0 ms Mitral E Point Velocity 105.0 cm/s Mitral A Point Velocity 83.4 cm/s Mitral E to A Ratio 1.3 LV E' Lateral Velocity 7.2 cm/s Mitral E to LV E' Lateral Ratio 14.6 LV E' Septal Velocity 8.1 cm/s Mitral E to LV E' Septal Ratio 13.0 TR Peak Velocity 295.0 cm/s TR Peak Gradient 34.8 mmHg Right Atrial Pressure 10.0 mmHg Pulmonary Artery Systolic Pressu 44.8 mmHg Right Ventricular Systolic Press 44.8 mmHg PV Peak Velocity 94.1 cm/s PV Peak Gradient 3.5 mmHg FINDINGS LEFT VENTRICLE Normal left ventricular size. Wall thickness is normal. The left ventricular systolic function is low normal with an estimated ejection fraction in the rang e of 50- 55%. RIGHT VENTRICLE Normal right ventricular size and systolic function. LEFT ATRIUM The left atrial size is normal. RIGHT ATRIUM The right atrial size is normal. ATRIAL SEPTUM Normal atrial septal thickness without atrial level shunting by limited color doppler interrogation. AORTA The aortic root and proximal ascending aorta are normal in size on limited imaging. MITRAL VALVE Trace mitral valve regurgitation. AORTIC VALVE Mild aortic valve regurgitation. Diffuse calcification of the aortic valve. TRICUSPID VALVE The estimated pulmonary arterial pressure is 45 mmHg. PULMONARY VALVE No pulmonary valve regurgitation or stenosis. VESSELS The inferior vena cava is normal in size. PERICARDIUM No pericardial effusion. Khoi Hamilton MD, FACC, [facility] (Electronically Signed) Final Date:15 November 2018 19:00
--- NOTE | 2018-11-16 03:32 | MB ---
cc: Anthony Mendenhall DO DATE: 11/15/2018 REASON FOR CONSULTATION: Syncope. HISTORY OF PRESENT ILLNESS: Karla Jarrett is a pleasant 88-year-old female who sees my partner, Dr. Servin, in the office and presented to [facility] due to a syncopal episode. The patient has been having trouble with balance lately and she was seeing a balance clinic. They have gone to rehab and then were running errands. They have got out of the van and her heard a thud on the ground and asked if she was okay and she said, "No, I am on the ground" and so he ran over and she was lying there. She denies chest pain, shortness of breath or palpitations before, during, or after the event. She states that the event is somewhat hazy, but she remembers going forward and landing on the left side of her face. She has had no other events of syncope other than when she had a stroke a number of years ago. On arrival, her blood pressure was 225/94. In seeing her, she is currently hemodynamically stable without chest pain or shortness of breath. PAST MEDICAL HISTORY: 1. Atrial fibrillation. 2. Diabetes. 3. Dementia. 4. History of TIA. 5. Hypertension. 6. Skin cancer. 7. Coronary artery disease. PAST SURGICAL HISTORY: 1. CABG x3 (HURD to LAD, SVG to obtuse marginal, SVG to PDA). 2. Right total knee replacement. 3. Cervical spine surgery. 4. Eye surgery. ALLERGIES: 1. PROCAINE. 2. OXYCODONE. 3. ZOCOR. MEDICATIONS: 1. Coumadin 5 mg daily. 2. Metformin 500 mg daily. 3. Lisinopril 2.5 mg daily. 4. Cardizem CD 120 mg daily. 5. Lipitor 40 mg daily. 6. Lutein 20 mg daily. 7. Memantine 10 mg b.i.d. FAMILY HISTORY: Denies sudden cardiac within the family. SOCIAL HISTORY: The patient is a former smoker. Denies tobacco or alcohol abuse. REVIEW OF SYSTEMS: Fourteen systems were reviewed including osteopathic. Pertinent positives and negatives above, otherwise negative. PHYSICAL EXAMINATION: VITAL SIGNS: Temperature 98.2, heart rate 72, blood pressure 177/76, respirations 12, pulse oximetry 96% on room air. GENERAL: The patient appears well, in no acute distress. Alert, awake and oriented x3. HEENT: Extraocular muscles are intact. She does have superficial facial abrasions. Mucous membranes moist. NECK: Supple. No JVD at 45 degrees. No carotid bruits heard bilaterally. Carotid upstroke is brisk in nature. HEART: Regular rate and rhythm. Positive first and second heart sounds with a 1/6 diastolic blowing murmur to the apex. LUNGS: Clear to auscultation bilaterally. No wheezes, rales or rhonchi. ABDOMEN: Soft, nontender, nondistended. No organomegaly noted. EXTREMITIES: Show no clubbing, cyanosis or edema. Femoral and distal pulses are intact bilaterally. NEUROLOGIC: No focal deficits. SKIN: Warm, dry and intact. OSTEOPATHIC: No kyphoscoliosis, lordosis or paraspinal tender points. LABORATORY DATA: Hemoglobin 11.2, hematocrit 32.0, platelets 124. INR 2.1. Potassium 3.8, BUN 9, creatinine 0.68. Troponin negative x2. Electrocardiogram (11/14/2018 at 19:27) probable sinus rhythm with occasional PACs, incomplete right bundle branch block, left anterior fascicular block, nonspecific T-wave abnormalities. IMPRESSION: 1. Syncopal episode. 2. Coronary artery disease with a history of coronary artery bypass graft x3. 3. Hypertensive urgency. 4. Diabetes. 5. Dyslipidemia. 6. Dementia. 7. Contusion, right head and face, status post fall. RECOMMENDATIONS: 1. Ms. Jarrett presented after a syncopal episode. As always, syncope is difficult as the patient usually does not remember a whole lot. She denies chest pain, shortness of breath or palpitations before, during, or after the event. 2. We will have her pacemaker interrogated for possible arrhythmias. 3. She has undergone an echocardiogram, which shows no specific concern leading to her syncope. 4. She has also had a carotid ultrasound, which shows no significant disease. 5. If no significant arrhythmia is found, this may be due to balance issues, which she will continue to follow in rehabilitation. 6. For now, we will continue her on her Coumadin as she has had no other falls in the recent past. If she continues to have falls, consideration may need to be to stop her Coumadin due to the risk of bleeding. Thank you for allowing me to see Karla Jarrett. If you have any questions, please do not hesitate to call. Anthony Mendenhall DO VGP/sv , 02:57 AM , 03:10 AM
[2018-11-16] MEDS: Sod Chloride 0.9% Inj 1,000 ML IV.CONT SCH (06:38)
[2018-11-16] MEDS ORDERED: Lisinopril 10 MG Tablet PO SCH (09:00)
[2018-11-16] MEDS: dilTIAZem CD 120 MG Capsule PO SCH (09:04)
[2018-11-16] MEDS: Senna/Docusate Sodium 8.6/50 MG Tablet PO SCH (09:04)
[2018-11-16] MEDS: Calcium Carbonate 500 MG Tablet PO SCH (09:04)
[2018-11-16] MEDS ORDERED: Lisinopril 10 MG Tablet PO ONE (11:11)
--- NOTE | 2018-11-16 17:49 | P.DS ---
DS: Providers Date of admission: 11/14/18 23:13 Primary care physician: Bobbi Mayo, Consults: 11/15/18 11:19 Consult to Cardiology Routine Consulting Provider: Anthony Mendenhall Does the patient have a Newspaper Manager who follows them?: Yes Preferred Can Repairer:: Erik Servin Reason for Consultation: Syncope Notified:: Office Spoke with:: roel Date Notified:: 11/15/18 Time Notified:: 11:30 Ordering Provider: DANTE Brief History from admission: This is a 88-year-old female with a PMH of HTN, Dementia, DM and A-fib on Coumadin who was brought to the ER by EMS after syncopal event. Pt states she has no recollection of syncope. Was stepping out of the car when heard a thud on the ground, states she " fell over like a tree". Pt denies any dizziness, lightheadedness or chest pain. Does complain of shoulder pain, constant, worse w/ movement. No h/o similar symptoms. On arrival, BP 225/94, HR 84, O2 sat 98% on RA, Afebrile. CBC unremarkable except for platelets 149. INR 2.1. Chemistry unremarkable except for GFR 61. Troponin negative. UA negative. Shoulder X-ray negative for fracture. CT Head negative. CT Face negative for facial bone fracture. CT C-spine previous fusion at C5-C6, no fracture. DS: Diagnosis Discharge Diagnosis (1) Syncope: Status: Acute (2) Fall: Status: Acute (3) A-fib: Status: Acute (4) DM (diabetes mellitus): Status: Acute DS: Summary Patient was admitted for observation, telemetry, cardiology evaluation, carotids and 2D echocardiogram were reviewed. Patient's had some mild uncontrolled hypertension but otherwise clinically stable without any further episodes of syncope, dizziness or arrhythmia events. Cardiology felt patient was clinically stable for discharge and outpatient follow-up. Pacemaker was interrogated, and she was clinically stable from a cardiology standpoint for discharge. She was instructed to resume her home Coumadin and outpatient follow -up with outpatient physical therapy. Syncopal etiology is uncertain, probable vasovagal. I advise close monitoring of her blood pressures and adjustment of her lisinopril dose at home outpatient follow-up, medications at activity discussed with patient and at bedside all questions answered. Discharge diagnosis: Syncope likely vasovagal Hypertensive emergency Atrial fibrillation paroxysmal with permanent pacemaker and on chronic anticoagulation Diabetes [id number] Dyslipidemia Dementia Contusion right head/face status post fall Abnormal EKG with PACs, incomplete right bundle branch block, nonspecific T wave abnormality Time Spent with Patient Total time spent providing and/or coordinating discharge services: Quality: VTE Deep Vein Thrombosis/Pulmonary Embolism Present on Admission: No Exam Narrative Exam Narrative: Pleasant well-developed well-nourished 88-year-old female, ecchymosis right forehead Awake alert forgetful pleasant Heart S1-S2 regular with ectopy Lungs clear no wheeze no rhonchi Abdomen soft nondistended positive bowel sounds Extremities no clubbing cyanosis no significant edema Results Impressions ITS Impressions Cervical Spine CT 11/14/18 19:29 CONCLUSION: 1. Extensive degenerative changes without fracture. 2. Previous fusion at C5-C6 Face CT 11/14/18 19:29 CONCLUSION: 1. Negative for facial bone fracture. Complete opacification of the left maxillary sinus with chronic periosteal reaction suggesting long-term obstruction. Head CT 11/14/18 19:29 CONCLUSION: 1. Negative for acute process . Shoulder X-Ray 11/14/18 19:29 CONCLUSION: Mild degenerative changes AC joints no fracture Carotid Doppler Study 11/15/18 00:00 CONCLUSION: Negative examination for a hemodynamically significant carotid stenosis. Adam Garibay MD FACR Discharge Plan Discharge Disposition Patient Disposition: 01 Discharge Home Discharge Condition Condition: Good Discharge Order Discharge Orders: Discharge Order (Routine); Ordered 11/16/18 Ordered By: Arleen Hurst Physicians Team ED Provider: Jaimie Carey ED Midlevel Provider: Courtney Guillen Primary Care Provider: Bobbi Mayo Attending Provider: Arleen Hurst Other Providers: Anthony Mendenhall Rxs /Orders / Referrals /Forms Prescriptions: New lisinopril 10 mg Tablet 20 mg PO DAILY Qty: 30 RF: 0 Continue memantine 10 mg Tablet 10 mg PO BID RF: 0 atorvastatin 40 mg Tablet 40 mg PO DAILY RF: 0 metformin 500 mg Tablet 500 mg PO DAILY RF: 0 diltiazem HCl 120 mg Capsule,Extended Release 24 Hr 120 mg PO DAILY RF: 0 warfarin 5 mg Tablet 5 mg PO DAILY RF: 0 calcium carbonate [Calcium 600] 600 mg calcium (1,500 mg) Tablet 600 mg PO DAILY RF: 0 lutein 20 mg Capsule 20 mg PO DAILY RF: 0 Discontinued lisinopril 2.5 mg Tablet 2.5 mg PO DAILY RF: 0 Referrals: Bobbi Mayo DO [Primary Care Provider] - See Instructions Anthony Mendenhall DO [Physician] - See Instructions ( Please call the physician's office to book the appointment to be seen within [2wks ].) Discharge Instructions Patient Printed Instructions: Lisinopril (By mouth) Status ED Status: Left Department Discharge Information Discharge Date/Time: 11/16/18 13:41
--- NOTE | 2018-11-17 00:15 | P.PNCA ---
Subjective Interval history: No events overnight Up and ambulating without problems Medications and Allergies Allergies Allergy/AdvReac Type Severity Reaction Status Date / Time procaine Allergy Severe FAINTED Verified 09/20/18 06:31 oxycodone AdvReac Severe Nausea/Vomi Verified 09/20/18 06:31 ting simvastatin AdvReac Intermediate FLUSHED Verified 09/20/18 06:31 Home Medications Medication Instructions Recorded Confirmed Type atorvastatin 40 mg PO DAILY 09/12/18 11/14/18 History diltiazem HCl 120 mg PO DAILY 09/12/18 11/14/18 History metformin 500 mg PO DAILY 09/12/18 11/14/18 History warfarin 5 mg PO DAILY 09/12/18 11/14/18 History calcium carbonate [Calcium 600] 600 mg PO DAILY 09/13/18 11/14/18 History lutein 20 mg PO DAILY 09/13/18 11/14/18 History memantine 10 mg PO BID 11/14/18 11/14/18 History Physical Exam Vital signs: Vital Signs 11/16/18 03:54 11/16/18 08:00 Temperature 98.0 F 97.8 F Pulse Rate 66 75 Respiratory Rate 12 15 Blood Pressure 173/74 H 178/85 H Pulse Oximetry 96 95 Intake & Output 11/16/18 11/16/18 11/17/18 06:59 18:59 06:59 Intake Total 1000 / 1000 400 / 400 Balance 1000 / 1000 400 / 400 Intake: IV 1000 / 1000 400 / 400 NS Inj 1,000 ML @ 100 mls/hr IV 1000 / 1000 400 / 400 .CONT .Q10H [facility] Rx#:[id number] Narrative: PE: GENERAL: Very pleasant elderly white female in no acute distress. at bedside. SKIN: Focused skin assessment warm and dry. HEENT: PERRLA, EOMI. No scleral icterus or conjunctival pallor. No lid lag or facial droop. Left periorbital ecchymosis, superficial facial abrasions. CARDIOVASCULAR: Regular rate and rhythm. No obvious murmurs to auscultation. No chest tenderness to palpation. RESPIRATORY: No obvious rhonchi or wheezing. Clear to auscultation. Breath sounds equal bilaterally. GASTROINTESTINAL: Abdomen soft, non-tender, nondistended. BS normal. MUSCULOSKELETAL: Extremities without clubbing, cyanosis, or edema. No obvious deformities. NEUROLOGICAL: Awake, alert and oriented x4. No focal neurologic deficits. Moving both upper and lower extremities spontaneously. PSYCHIATRIC: Appropriate mood and affect. Insight and judgment normal. Results 11/15/18 06:48 11/15/18 06:48 Cardiac Enzymes 11/15/18 11/15/18 Range/Units 00:17 06:48 AST 20 (15-37) U/L Troponin I Less than 0.02 L Less than 0.02 L (0.02-0.05) ng/mL CBC 11/15/18 Range/Units 06:48 WBC 6.7 (4.0-11.0) th/mm3 RBC 3.58 L (4.00-5.30) mil/mm3 Hgb 11.2 L (11.6-15.3) gm/dL Hct 32.0 L (35.0-46.0) % Plt Count 124 L (150-450) th/mm3 Neut # (Auto) 4.9 (1.8-7.7) th/mm3 Lymph # (Auto) 1.0 (1.0-4.8) th/mm3 [place] # (Auto) 0.8 (0.0-0.9) th/mm3 Eos # (Auto) 0.0 (0.0-0.4) th/mm3 Baso # (Auto) 0.0 (0.0-0.2) th/mm3 Comprehensive Metabolic Panel 11/15/18 Range/Units 06:48 Sodium 141 (136-145) meq/L Potassium 3.8 (3.5-5.1) meq/L Chloride 109 H (98-107) meq/L Carbon Dioxide 24.4 (21.0-32.0) meq/L BUN 9 (7-18) mg/dL Creatinine 0.68 (0.50-1.00) mg/dL Calcium 8.6 D (8.5-10.1) mg/dL AST 20 (15-37) U/L ALT 21 (10-53) U/L Alkaline Phosphatase 86 (45-117) U/L Total Protein 6.2 L (6.4-8.2) g/dL Albumin 3.2 L (3.4-5.0) g/dL Intake and Output 11/16/18 11/16/18 11/17/18 14:59 22:59 06:59 Intake Total 400 / 400 Balance 400 / 400 Intake: IV 400 / 400 NS Inj 1,000 ML @ 100 mls/hr IV 400 / 400 .CONT .Q10H [facility] Rx#:[id number] - Imaging and Cardiology Imaging: Impressions Carotid Doppler Study 11/15/18 00:00 CONCLUSION: Negative examination for a hemodynamically significant carotid stenosis. Adam Garibay MD FACR Assessment and Plan - Assessment (1) A-fib Code(s): I48.91 - Unspecified atrial fibrillation Status: Acute (2) Fall Code(s): W19.XXXA - Unspecified fall, initial encounter Status: Acute (3) Open nasal wound Code(s): S01.20XA - Unspecified open wound of nose, initial encounter Status: Acute (4) Syncope Code(s): R55 - Syncope and collapse Status: Acute - Plan 1. Syncopal episode. 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 Coronary artery disease with a history of coronary artery bypass graft x3. 3. Hypertensive urgency. 4. Diabetes. 5. Dyslipidemia. 6. Dementia. 7. Contusion, right head and face, status post fall. 8. Cardiovascularly stable for discharge
== END 2018-11-16 13:41 | disposition home or self-care (01) ==
LOC: NEDA 19:05 → NEPD 19:05 → NEPFCDU 11-15 00:44
PROVIDERS: ADMIT Internal Medicine; ATTEND Internal Medicine
DX: I45.10 Unspecified right bundle-branch block; I48.2 Chronic atrial fibrillation; E78.5 Hyperlipidemia, unspecified; F03.90 Unspecified dementia, unspecified severity, without behavioral disturbance, psychotic disturbance, mood disturbance, and anxiety; Z96.651 Presence of right artificial knee joint; Z98.1 Arthrodesis status; R55 Syncope and collapse; I25.10 Atherosclerotic heart disease of native coronary artery without angina pectoris; V48.4XXA Person boarding or alighting a car injured in noncollision transport accident, initial encounter; I16.1 Hypertensive emergency; Z79.84 Long term (current) use of oral hypoglycemic drugs; Z86.73 Personal history of transient ischemic attack (TIA), and cerebral infarction without residual deficits; Z95.1 Presence of aortocoronary bypass graft; W07.XXXA Fall from chair, initial encounter; F17.210 Nicotine dependence, cigarettes, uncomplicated; S01.20XA Unspecified open wound of nose, initial encounter; Z79.899 Other long term (current) drug therapy; Z79.01 Long term (current) use of anticoagulants; H91.90 Unspecified hearing loss, unspecified ear; E11.9 Type 2 diabetes mellitus without complications; Z85.820 Personal history of malignant melanoma of skin; Z90.710 Acquired absence of both cervix and uterus; I10 Essential (primary) hypertension